=== PATIENT | male | born 1955 | race Caucasian/White ===

== ENCOUNTER → 2017-11-02 12:32 | Outpatient (CLI) | payer BC ==
[~2017-11-02] VITALS: Ht 182.9 cm; Wt 108.9 kg
[~2017-11-02 12:32] MED LIST: AZOR 10-20 MG T1 TAB PO; AZOR 5-40 MG TA1 TAB PO; BAYER CHEWABLE81 MG PO; HYDROCODONE-APA1 TAB PO; SYNTHROID25 MCG PO; SYNTHROID50 MCG PO; TIROSINT75 MCG PO
[2017-11-02 13:30] VITALS: Ht 182.9 cm; Wt 108.9 kg
== END | disposition home or self-care (01) ==
LOC: D.FANS 10-19 13:00
DX: E11.9 Type 2 diabetes mellitus without complications (principal)

== ENCOUNTER 2018-05-24 13:12 | Emergency (ER) | payer BC ==
[~2018-05-24] VITALS: Ht 182.9 cm; Wt 108.2 kg
--- NOTE | ~2018-05-24 | CN ---
PATIENT NAME:NANCY BERRY MEDICAL RECORD: [id number] : 57 LOCATION:[facility] ADMIT DATE: ACCOUNT: [id number] CONSULTING PHYSICIAN: QUINTEN MORLEY MD REFERRING PHYSICIAN: NOEMÍ JI MD DATE OF CONSULTATION: 05/24/2018 DIAGNOSIS: Left arm pain. HISTORY: This is a gentleman who presents with no chest pain, but the left arm pain that started yesterday at approximately 3:00 p.m. It came and went yesterday, came back on him today. It has been relatively constant today. His EKG is normal. Troponin is normal. PHYSICAL EXAMINATION: GENERAL APPEARANCE: Well-nourished, well-developed, appears stated age. Level of distress, comfortable. PSYCHIATRIC: Mental status, alert, normal affect. Orientation, oriented to time, place and person. EYES: Lids and conjunctiva, noninjected. No discharge, no pallor. ENT: Lips, teeth, gums, normal dentition. Oropharynx, no cyanosis, no pallor. NECK: Carotid arteries, bilateral normal upstroke, no bruits, no thrills. JUGULAR VEINS: No jugular venous pressure or distention. CERVICAL LYMPH NODES: Nontender, nonenlarged. THYROID: Not enlarged. Nontender. No nodules. LUNGS: Respiratory effort, unlabored. CHEST: Normal curvature. No thoracic deformity. No chest wall tenderness. Percussion, resonant. Auscultation, clear. No wheezes, no rales, no rhonchi. CARDIOVASCULAR: Precordial exam, nondisplaced. No heaves or pericardial thrills. Rate and rhythm, regular. Heart sounds, normal S1, normal S2. No S3, no gallop, no rub. Systolic murmur, not heard. Diastolic murmur, not heard. EXTREMITIES: No cyanosis, no edema. Peripheral pulses, full and equal in all extremities, except as noted. No bruits appreciated. ABDOMEN: Soft, nondistended. Normal aorta. No bruit. Nontender. No masses. Liver, nontender, no hepatomegaly. Spleen, nontender, no splenomegaly. MUSCULOSKELETAL: No joint tenderness. No joint swelling. No erythema. NEUROLOGICAL: Normal gait, normal strength, normal tone. SKIN: Warm and dry. OVERALL IMPRESSION: Left arm pain. This very well may be musculoskeletal in nature. His troponin is normal after almost 24 hours of the discomfort and his EKG is normal. We will give him nonsteroidal anti-inflammatories for this and set him for a stress test in the a.m. TRANSINT:[id number] Voice Confirmation ID: [id number] DOCUMENT ID: [id number] QUINTEN MORLEY MD at 1806 CC: [id number] DICTATION DATE: 05/24/18 1531 SELF SEALING FUEL TANK BUILDER: 05/24/18 1540 DEP ER 05/24/18 [place] [id number]
[2018-05-24 13:35] VITALS: Ht 182.9 cm; Wt 108.2 kg
[2018-05-24] MEDS ORDERED: BYSTOLIC2.5 MG PO (13:37)
[2018-05-24] MEDS ORDERED: GLUCOPHAGE1000 MG PO (13:38)
[2018-05-24 13:54] LABS: BASOPHILS 0.4 % (0-2); HEMATOCRIT 46.8 % (42.0-54.0); HEMOGLOBIN 16.6 g/dL (13.5-17.5); IMMATURE GRANULOCYTES 0.4 % (0-5); LYMPHOCYTES 35.9 % (15-50); MCH 33.1 pg (26.0-34.0); MCHC 35.5 g/dL (31.0-37.0); MCV 93.2 fL (80.0-100.0); MONOCYTES 13.3 % (2-11); PLATELET COUNT 165 10x3/uL (130-400); RBC 5.02 10x6/uL (4.20-6.10); RDW 12.8 % (11.5-14.5); WBC 4.9 10x3/uL (4.8-10.8)
[2018-05-24 14:02] LABS: INR 1.02 (0.85-1.17)
[2018-05-24 14:04] LABS: D-DIMER-QUANTITATIVE 0.52 ug/mLFEU (0.20-0.54)
[2018-05-24 14:06] LABS: ALBUMIN 3.8 g/dL (3.4-5.0); ALKALINE PHOSPHATASE 61 U/L (46-116); ALT (SGPT) 35 U/L (10-68); BILIRUBIN - TOTAL 0.42 mg/dL (0.2-1.3); CALC OSMOLALITY 267 mosm/kg (275-300); CARBON DIOXIDE 26.7 mmol/L (21.0-32.0); CHLORIDE - SERUM 102 mmol/L (98-107); CREATININE - SERUM 0.8 mg/dL (0.6-1.3); GLUCOSE 130 mg/dL (74-106); PROTEIN - SERUM 7.4 g/dL (6.4-8.2); SODIUM 134 mmol/L (136-145); UREA NITROGEN 8 mg/dL (7-18); eGFR NON AFRICAN AMERICAN > 90 mL/min (90-120)
[2018-05-24 14:17] LABS: CKMB 3.6 U/L (0.0-3.6); CREATINE KINASE 237 UL (21-232)
[2018-05-24 14:18] LABS: TROPONIN-I < 0.017 ng/mL (0.000-0.060)
[2018-05-24] MEDS ORDERED: NORVASC2.5 MG PO (15:46)
[2018-05-24 16:02] VITALS: BP 160/86
== END 2018-05-24 16:02 | disposition home or self-care (01) ==
LOC: D.ER 13:12
PROVIDERS: Family Medicine
DX: R07.9 Chest pain, unspecified (principal); I10 Essential (primary) hypertension

== ENCOUNTER → 2021-02-03 10:31 | Outpatient (CLI) | payer BC ==
[2020-11-13 09:32] VITALS: BMI 34.6
[~2021-02-03 10:31] MED LIST changes: +ACETAMINOPHEN500 M1 PO; +BYSTOLIC2.5 MG PO; +CYCLOBENZAPRINE10 MG PO; +GLUCOPHAGE1000 MG PO; +IBUPROFEN800 MG PO; +LOTREL 10-40 M1 EACH PO; +NORVASC2.5 MG PO; +XIGDUO XR 5 MG1 EAC1
== END | disposition home or self-care (01) ==
LOC: D.US 10:00
PROVIDERS: ATTEND Family Medicine
DX: R60.0 Localized edema (principal)

== ENCOUNTER → 2021-02-04 14:02 | Outpatient (CLI) | payer BC ==
[2020-11-13 09:32] VITALS: BMI 34.6
== END | disposition home or self-care (01) ==
LOC: D.MRI 11:30
PROVIDERS: ATTEND Family Medicine
DX: M23.92 Unspecified internal derangement of left knee (principal)

== ENCOUNTER 2021-02-11 05:16 | Day surgery (SDC) | payer BC ==
[~2021-02-11] VITALS: Ht 182.9 cm; Wt 113.4 kg
[~2021-02-11 05:16] MED LIST changes: +GLIMEPIRIDE2 MG; +PROZAC20 MG; +ULTRAM50 MG
[2021-02-11 06:00] LABS: EOSINOPHILS 2.1 % (0-7); HEMATOCRIT 47.6 % (42.0-54.0); HEMOGLOBIN 16.3 g/dL (13.5-17.5); LYMPHOCYTES 38.3 % (15-50); MCH 32.9 pg (26.0-34.0); MCHC 34.2 g/dL (31.0-37.0); MCV 96.2 fL (80.0-100.0); MEAN PLATELET VOLUME 8.6 fL (7.4-10.4); MONOCYTES 14.5 % (2-11); NEUTROPHILS 44.1 % (40-80); PLATELET COUNT 192 10x3/uL (130-400); RBC 4.95 10x6/uL (4.20-6.10); RDW 13.9 % (11.5-14.5); WBC 4.2 10x3/uL (4.8-10.8)
[2021-02-11 06:32] VITALS: BP 142/73; Ht 182.9 cm; Wt 113.4 kg
[2021-02-11 06:34] LABS: CALC OSMOLALITY 277 mosm/kg (275-300); CALCIUM 9.5 mg/dL (8.5-10.1); CARBON DIOXIDE 27.3 mmol/L (21.0-32.0); CHLORIDE - SERUM 100 mmol/L (98-107); POTASSIUM - SERUM 4.5 mmol/L (3.5-5.1); SODIUM 135 mmol/L (136-145); UREA NITROGEN 17 mg/dL (7-18); eGFR NON AFRICAN AMERICAN 80 mL/min (90-120)
[2021-02-11 06:35] LABS: GLUCOSE 198 mg/dL (74-106)
[2021-02-11] MEDS ORDERED: PERCOCET 10-321 EAC1 PO (07:01)
[2021-02-11] MEDS ORDERED: VISTARIL50 MG PO (07:02)
--- NOTE | 2021-02-11 10:22 | NUR ---
0945 DRESSED. AWAKE & ALERT. PROVIDED WITH DISCHARGE INFORMATION INCLUDING RX X'S 2: VISTARIL 50MG & PERCOCET 10/325MG, MED REC., RTC APPT., [facility] OP D/C INSTRUCTIONS, & DR. RIVERA'S KNEE SCOPE POST-OP INSTRUCTIONS. PT VOICED UNDERSTANDING. TO PRIVATE CAR PER WHEELCHAIR BY THIS NURSE. HOME WITH , MATTHEW BERRY. DYLLAN Diaz
--- NOTE | 2021-02-11 16:49 | OP ---
PATIENT NAME: NANCY SEGOVIA MEDICAL RECORD: [id number] :57 LOCATION:[facility] ADMISSION DATE: SURGEON: ALEXANDRE RIVERA DO DATE OF OPERATION: 02/11/2021 PROCEDURE PERFORMED: Left knee arthroscopy with partial medial meniscectomy. PREOPERATIVE DIAGNOSES: Left knee medial meniscal tear and grade III chondromalacia of the medial femoral condyle. POSTOPERATIVE DIAGNOSES: Left knee medial meniscal tear and grade III chondromalacia of the medial femoral condyle. INDICATIONS: Mr. Segovia is a 65-year-old male who slipped quite a few months ago, really has had left knee pain since. He has got an MRI, which showed the above findings. I saw him in the office and told him that I could trim out his meniscal tear that he would be at risk for further chondromalacia of his knee due to the fact need for further surgery, continued pain, retear of the meniscus, infection, bleeding, damage to nerves and vessels in the area, arthrofibrosis of the knee, and he signed consent. SURGEON: Alexandre Rivera DO DESCRIPTION OF THE PROCEDURE: The patient was taken to the operative suite, laid in supine position, given general anesthetic and LMA was placed, given 2 grams Ancef preoperatively. Left lower extremity was prepped and draped in sterile fashion. Timeout was performed. Everyone was in agreement with the correct site, side, patient, and procedure. I then began by flexing the knee and established a lateral portal with an 11-blade scalpel. Trocar was then entered into the joint and inspected the suprapatellar pouch, medial and lateral gutters and looking for loose bodies and not finding any. I then flexed the knee down again after being in extension and established a medial portal with an 18-gauge spinal needle an 11-blade scalpel. Trocar was then brought in. I then put a valgus stress on the knee and got to the posterior aspect of the medial compartment, saw the grade III chondromalacia of the medial femoral condyle and then a very complex tear in the posterior horn of the medial meniscus. I brought in biters and shaver to trim it out to a stable point. Once this was adequately trimmed back to a stable point, I checked the ACL with a probe, it was in good shape and then [id number]'ed in the knee, checked the lateral compartment, the cartilage was in good repair there and the meniscus was as well. I then turned the water off and suction on. I removed the excess fluid from the knee. I then closed the portal sites with 4-0 Monocryl inverted fashion and placed on Steri-Strips. Injected 2.5 mL of 0.25% Marcaine with epinephrine in each portal site just under the skin, not into the joint and these were dressed with Adaptic, 4 x 4s, ABD, Webril, [place] wrap, CLAUDIA hose stockings. He was awakened and taken to recovery in stable condition. BLOOD LOSS: Minimal. COMPLICATION: None. TRANSINT:[id number] Voice Confirmation ID: [id number] DOCUMENT ID: [id number] OPERATIVE REPORT [id number] NANCY SEGOVIA,ALEXANDRE Rawls DO at 1649 CC: [id number] DICTATION DATE: 02/11/21 0751 ALMOND BLANCHER: 02/11/21 1201 [facility] 02/11/21 [place] [id number] [place] [address]
== END 2021-02-11 09:45 | disposition home or self-care (01) ==
LOC: D.OPS 05:16
PROVIDERS: Anesthesiology; ATTEND Orthopaedic Surgery
DX: S83.242A Other tear of medial meniscus, current injury, left knee, initial encounter (principal); X58.XXXA Exposure to other specified factors, initial encounter; M94.262 Chondromalacia, left knee; M25.562 Pain in left knee